=== PATIENT | male | born 1970 | race Caucasian/White ===

== ENCOUNTER 2016-05-28 08:42 | Emergency (ER) | payer BC ==
[2016-05-28] MEDS ORDERED: PROPARACAINE 0.5% OPHTH DROPS 15 ML BTL BOTH EYES STA (09:17)
--- NOTE | 2016-05-28 09:54 | ED ---
General Adult HPI - General Source: patient, RN notes reviewed Mode of arrival: ambulatory Limitations: no limitations <Farshad Bland - Last Filed: 05/28/16 10:33> <Poncho Negro - Last Filed: 05/28/16 21:48> - General Chief complaint: Skin/Abscess/Foreign Body Stated complaint: SHINGLES Time Seen by Provider: 05/28/16 09:16 - History of Present Illness Initial comments: Patient a 45-year-old male who presents emergency room today with chief complaint of a rash located to the top of his forehead. States this started 3 days ago. He states he had some mild right eye irritation when it started. He states his eye does not hurt today but the upper eyelid is a little sore. He does admit that he went to urgent care last night was advised coming here to the emergency room to rule out shingles is possibly to his eye. Patient states never had she was in the past. States there is some local tenderness. He states the rash is stable same over the last 3 days. States he has noticed a swollen gland on the right side. He denies any other complaints or associated symptoms. Patient denies any recent fever, chills, shortness of breath, chest pain, back pain, abdominal pain, nausea or vomiting, numbness or tingling, dysuria or hematuria, constipation or diarrhea, headaches or visual changes, or any other complaints. (Farshad Bland) - Related Data Previous Rx's Medication Instructions Recorded Sulfamethox-Tmp 800-160Mg [Bactrim 1 tab PO Q12HR #20 tab 05/28/16 DS 800-160 mg] valACYclovir HCL [Valacyclovir] 1,000 mg PO TID 7 Days 05/28/16 Allergies Allergy/AdvReac Type Severity Reaction Status Date / Time No Known Allergies Allergy Verified 05/28/16 10:42 Review of Systems ROS Other: All systems not noted in ROS Statement are negative. <Farshad Bland - Last Filed: 05/28/16 10:33> ROS Other: All systems not noted in ROS Statement are negative. <Poncho Negro - Last Filed: 05/28/16 21:48> ROS Statement: Those systems with pertinent positive or pertinent negative responses have been documented in the HPI. Past Medical History Past Medical History: Hypertension History of Any Multi-Drug Resistant Organisms: None Reported Past Surgical History: Appendectomy, Orthopedic Surgery Additional Past Surgical History / Comment(s): left shoulder, oral surgery Past Psychological History: No Psychological Hx Reported Smoking Status: Former smoker Past Alcohol Use History: Occasional Past Drug Use History: Marijuana <Farshad Bland - Last Filed: 05/28/16 10:33> General Exam Limitations: no limitations <BaldoFarshad - Last Filed: 05/28/16 10:33> <Poncho Negro - Last Filed: 05/28/16 21:48> - General Exam Comments Initial Comments: General: The patient is awake and alert, in no distress, and does not appear acutely ill. Eye: Pupils are equal, round and reactive to light, extra-ocular movements are intact. No nystagmus. There is normal conjunctiva bilaterally. No signs of icterus. Ears, nose, mouth and throat: There are moist mucous membranes and no oral lesions. Patient's right eye was stained with forcing shows no dendritic pattern. No uptake. No foreign bodies. Neck: The neck is supple, there is no tenderness or JVD. Cardiovascular: There is a regular rate and rhythm. No murmur, rub or gallop is appreciated. Respiratory: Lungs are clear to auscultation, respirations are non-labored, breath sounds are equal. No wheezes, stridor, rales, or rhonchi. Musculoskeletal: Normal ROM, no tenderness. Strength 5/5. Sensation intact. Pulses equal bilaterally 2+. Neurological: A&O x 3. CN II-XII intact, There are no obvious motor or sensory deficits. Coordination appears grossly intact. Speech is normal. Skin: Patient does have mild redness irritation to the midline of the forehead running vertically. Mild tenderness. Patient has some redness irritation to the superior lateral aspect of the right eyelid. Few white spots seen at the corner. Psychiatric: Cooperative, appropriate mood & affect, normal judgment. (Farshad Bland) Medical Decision Making <BlandFarshad - Last Filed: 05/28/16 10:33> <Poncho Negro - Last Filed: 05/28/16 21:48> - Medical Decision Making Case discussed and seen by attending physician Dr. Negro. Patient will be covered for possible shingles with antivirals and possible skin staph infection with an antibiotic. He is advised close follow-up with family doctor over the next 2 days. Advised return here to emergency room if any symptoms increase or worsen or for any other concerns. (Farshad Bland) I saw this patient in conjunction with the physician biology laboratory assistant. I performed independent history and physical exam. Agree with case management. (Poncho Negro) Disposition Time of Disposition: 10:33 <Farshad Bland - Last Filed: 05/28/16 10:33> <Poncho Negro - Last Filed: 05/28/16 21:48> Clinical Impression: Skin infection Disposition: HOME SELF-CARE Condition: Good Instructions: Shingles (ED) Additional Instructions: Please use medication as discussed. Please follow-up with family doctor in the next 2 days. Please return to emergency room if the symptoms increase or worsen or for any other concerns. Prescriptions: Sulfamethox-Tmp 800-160Mg [Bactrim DS 800-160 mg] 1 tab PO Q12HR #20 tab valACYclovir HCL [Valacyclovir] 1,000 mg PO TID 7 Days Referrals: None,Stated [Primary Care Provider] - 1-2 days Jennyfer Juan MD [REFERRING] - 1-2 days
[2016-05-28 10:51] VITALS: BP 162/91; PULSE 97; RESP 18; TEMP 99.1
== END 2016-05-28 10:57 | disposition home or self-care (01) ==
LOC: EC 08:42
DX: L08.9 Local infection of the skin and subcutaneous tissue, unspecified (principal); Z87.891 Personal history of nicotine dependence
CPT/HCPCS: 99283

== ENCOUNTER 2018-12-18 11:51 | Emergency (ER) | payer BC, OTHER ==
[2018-12-18 12:14] VITALS: TEMP 97.5
[2018-12-18] MEDS ORDERED: ONDANSETRON 4 MG/2 ML VIAL IVP STA (13:02)
[2018-12-18] MEDS ORDERED: SODIUM CHLORIDE 0.9% 1,000 ML IV STA (13:02)
--- NOTE | 2018-12-18 13:05 | ED ---
Nausea/Vomiting/Diarrhea HPI - General Chief complaint: Nausea/Vomiting/Diarrhea Stated complaint: N/V/D, neck pain Time Seen by Provider: 12/18/18 12:37 Source: patient Mode of arrival: wheelchair Limitations: no limitations - History of Present Illness Initial comments: Patient is a 48-year-old male presenting to the emergency Department with complaints of nausea and vomiting x 1 week. Patient states he did have a few days of diarrhea but that has since resolved. He denies any fever, chills, abdominal pain. Patient states he feels overall fatigue as well as having some neck pain. Patient admits to his neck pain being chronic in nature and is currently seeing a chiropractor for this. He denies any other trauma to his neck. Patient's mother is here with him. He has no other complaints at this time. - Related Data Previous Rx's Medication Instructions Recorded Sulfamethox-Tmp 800-160Mg [Bactrim 1 tab PO Q12HR #20 tab 05/28/16 DS 800-160 mg] valACYclovir HCL [Valacyclovir] 1,000 mg PO TID 7 Days tab 05/28/16 Ondansetron Odt [Zofran Odt] 8 mg PO Q8HR #10 tab 12/18/18 Allergies Allergy/AdvReac Type Severity Reaction Status Date / Time No Known Allergies Allergy Verified 12/18/18 12:12 Review of Systems ROS Statement: Those systems with pertinent positive or pertinent negative responses have been documented in the HPI. ROS Other: All systems not noted in ROS Statement are negative. Past Medical History Past Medical History: Hypertension History of Any Multi-Drug Resistant Organisms: None Reported Past Surgical History: Appendectomy, Orthopedic Surgery Additional Past Surgical History / Comment(s): left shoulder, oral surgery Past Psychological History: No Psychological Hx Reported Smoking Status: Former smoker Past Alcohol Use History: Occasional Past Drug Use History: None Reported, Marijuana General Exam - General Exam Comments Initial Comments: GENERAL: Well-appearing, well-nourished and in no acute distress. She appears fatigued, laying in the bed. HEAD: Atraumatic, normocephalic. EYES: Pupils equal round and reactive to light, extraocular movements intact, sclera anicteric, conjunctiva are normal. ENT: TMs normal, nares patent, oropharynx clear without exudates. Moist mucous membranes. NECK: Normal range of motion, supple without lymphadenopathy or JVD. Tenderness to palpation. LUNGS: Breath sounds clear to auscultation bilaterally and equal. No wheezes rales or rhonchi. HEART: Regular rate and rhythm without murmurs, rubs or gallops. ABDOMEN: Soft, nontender, normoactive bowel sounds. No guarding, no rebound. No masses appreciated. : Deferred EXTREMITIES: Normal range of motion, no pitting or edema. No clubbing or cyanosis. NEUROLOGICAL: Cranial nerves II through XII grossly intact. Normal speech, normal gait. PSYCH: Normal mood, normal affect. SKIN: Warm, Dry, normal turgor, no rashes or lesions noted. Limitations: no limitations Course Vital Signs 12/18/18 12/18/18 12:13 16:49 Temperature 97.5 F L Pulse Rate 66 81 Respiratory 18 16 Rate Blood Pressure 162/99 145/98 O2 Sat by Pulse 98 97 Oximetry Medical Decision Making - Medical Decision Making Patient is a 48-year-old male with complaints of nausea vomiting 1 week as well as feeling fatigued and neck pain. Patient's neck pain is chronic in nature. Patient seemed overly concerned about his back pain. Upon arrival, vital signs are stable, afebrile. On exam, he shouldn't has full cervical range of motion. No abdominal pain. CBC, CMP, UA are all within normal limits. Urine drug screen is normal. Cervical spine x-ray shows degenerative disc disease and spondylosis of C5 through C6. Patient was given some fluids, Zofran, and Toradol. Patient reports feeling improvement. Patient will follow up with his primary care as well as orthopedic that he knows. Patient is stable for discharge and he is in agreement with this plan. Return parameters were discussed with patient and he verbalized understanding. Case discussed with Dr. Cox. - Lab Data Result diagrams: 12/18/18 13:25 12/18/18 13:25 Lab Results 12/18/18 12/18/18 12/18/18 Range/Units 13:25 13:25 13:25 WBC 7.6 (3.8-10.6) k/uL RBC 5.90 (4.30-5.90) m/uL Hgb 16.6 (13.0-17.5) gm/dL Hct 48.9 (39.0-53.0) % MCV 82.8 (80.0-100.0) fL MCH 28.1 (25.0-35.0) pg MCHC 34.0 (31.0-37.0) g/dL RDW 16.4 H (11.5-15.5) % Plt Count 224 (150-450) k/uL Neutrophils % 80 % Lymphocytes % 13 % Monocytes % 5 % Eosinophils % 1 % Basophils % 1 % Neutrophils # 6.1 (1.3-7.7) k/uL Lymphocytes # 1.0 (1.0-4.8) k/uL Monocytes # 0.4 (0-1.0) k/uL Eosinophils # 0.1 (0-0.7) k/uL Basophils # 0.0 (0-0.2) k/uL Anisocytosis Slight Sodium 139 (137-145) mmol/L Potassium 4.7 (3.5-5.1) mmol/L Chloride 102 (98-107) mmol/L Carbon Dioxide 22 (22-30) mmol/L Anion Gap 15 mmol/L BUN 12 (9-20) mg/dL Creatinine 0.93 (0.66-1.25) mg/dL Est GFR (CKD-EPI)AfAm >90 (>60 ml/min/1.73 sqM) Est GFR (CKD-EPI)NonAf >90 (>60 ml/min/1.73 sqM) Glucose 94 (74-99) mg/dL Plasma Lactic Acid Bud 1.0 (0.7-2.0) mmol/L Calcium 9.7 (8.4-10.2) mg/dL Total Bilirubin 0.8 (0.2-1.3) mg/dL AST 15 L (17-59) U/L ALT 23 (21-72) U/L Alkaline Phosphatase 80 (38-126) U/L Total Protein 7.1 (6.3-8.2) g/dL Albumin 4.5 (3.5-5.0) g/dL Amylase 48 (30-110) U/L Lipase 74 (23-300) U/L Urine Color Urine Appearance (Clear) Urine pH (5.0-8.0) Ur Specific [place] (1.001-1.035) Urine Protein (Negative) Urine Glucose (UA) (Negative) Urine Ketones (Negative) Urine Blood (Negative) Urine Nitrite (Negative) Urine Bilirubin (Negative) Urine Urobilinogen (<2.0) mg/dL Ur Leukocyte Esterase (Negative) Urine Opiates Screen (NotDetected) Ur Oxycodone Screen (NotDetected) Urine Methadone Screen (NotDetected) Ur Propoxyphene Screen (NotDetected) Ur Barbiturates Screen (NotDetected) U Tricyclic Antidepress (NotDetected) Ur Phencyclidine Scrn (NotDetected) Ur Amphetamines Screen (NotDetected) U Methamphetamines Scrn (NotDetected) U Benzodiazepines Scrn (NotDetected) Urine Cocaine Screen (NotDetected) U Marijuana (THC) Screen (NotDetected) 12/18/18 Range/Units 14:30 WBC (3.8-10.6) k/uL RBC (4.30-5.90) m/uL Hgb (13.0-17.5) gm/dL Hct (39.0-53.0) % MCV (80.0-100.0) fL MCH (25.0-35.0) pg MCHC (31.0-37.0) g/dL RDW (11.5-15.5) % Plt Count (150-450) k/uL Neutrophils % % Lymphocytes % % Monocytes % % Eosinophils % % Basophils % % Neutrophils # (1.3-7.7) k/uL Lymphocytes # (1.0-4.8) k/uL Monocytes # (0-1.0) k/uL Eosinophils # (0-0.7) k/uL Basophils # (0-0.2) k/uL Anisocytosis Sodium (137-145) mmol/L Potassium (3.5-5.1) mmol/L Chloride (98-107) mmol/L Carbon Dioxide (22-30) mmol/L Anion Gap mmol/L BUN (9-20) mg/dL Creatinine (0.66-1.25) mg/dL Est GFR (CKD-EPI)AfAm (>60 ml/min/1.73 sqM) Est GFR (CKD-EPI)NonAf (>60 ml/min/1.73 sqM) Glucose (74-99) mg/dL Plasma Lactic Acid Bud (0.7-2.0) mmol/L Calcium (8.4-10.2) mg/dL Total Bilirubin (0.2-1.3) mg/dL AST (17-59) U/L ALT (21-72) U/L Alkaline Phosphatase (38-126) U/L Total Protein (6.3-8.2) g/dL Albumin (3.5-5.0) g/dL Amylase (30-110) U/L Lipase (23-300) U/L Urine Color Yellow Urine Appearance Clear (Clear) Urine pH 5.5 (5.0-8.0) Ur Specific [place] 1.017 (1.001-1.035) Urine Protein Negative (Negative) Urine Glucose (UA) Negative (Negative) Urine Ketones 4+ H (Negative) Urine Blood Negative (Negative) Urine Nitrite Negative (Negative) Urine Bilirubin Negative (Negative) Urine Urobilinogen <2.0 (<2.0) mg/dL Ur Leukocyte Esterase Negative (Negative) Urine Opiates Screen Not Detected (NotDetected) Ur Oxycodone Screen Not Detected (NotDetected) Urine Methadone Screen Not Detected (NotDetected) Ur Propoxyphene Screen Not Detected (NotDetected) Ur Barbiturates Screen Not Detected (NotDetected) U Tricyclic Antidepress Not Detected (NotDetected) Ur Phencyclidine Scrn Not Detected (NotDetected) Ur Amphetamines Screen Not Detected (NotDetected) U Methamphetamines Scrn Not Detected (NotDetected) U Benzodiazepines Scrn Not Detected (NotDetected) Urine Cocaine Screen Not Detected (NotDetected) U Marijuana (THC) Screen Not Detected (NotDetected) Disposition Clinical Impression: Dehydration, Nausea & vomiting, Neck pain Disposition: HOME SELF-CARE Condition: Stable Instructions (If sedation given, give patient instructions): Acute Nausea and Vomiting (ED), Neck Pain (ED) Additional Instructions: Please return to the Emergency Department if symptoms worsen or any other concerns. Follow-up with spine doctor as discussed. Also follow-up with PCP. Prescriptions: Ondansetron Odt [Zofran Odt] 8 mg PO Q8HR #10 tab Is patient prescribed a controlled substance at d/c from ED?: No Referrals: None,Stated [REFERRING] - 1-2 days
[2018-12-18 13:49] LABS: ALT 23 U/L (21-72); AST 15 U/L (17-59); African American GFR (CKD) >90 (>60 ml/min/1.73 sqM); Albumin 4.5 g/dL (3.5-5.0); Alkaline Phosphatase 80 U/L (38-126); Amylase 48 U/L (30-110); Anion Gap 15 mmol/L; Blood Urea Nitrogen 12 mg/dL (9-20); Calcium 9.7 mg/dL (8.4-10.2); Carbon Dioxide 22 mmol/L (22-30); Chloride 102 mmol/L (98-107); Glucose 94 mg/dL (74-99); Potassium 4.7 mmol/L (3.5-5.1); Sodium 139 mmol/L (137-145); Total Bilirubin 0.8 mg/dL (0.2-1.3); Total Protein 7.1 g/dL (6.3-8.2)
[2018-12-18 13:51] LABS: Anisocytosis Slight; Basophils % (A) 1 %; Eosinophils # (A) 0.1 k/uL (0-0.7); Eosinophils % (A) 1 %; HCT 48.9 % (39.0-53.0); HGB 16.6 gm/dL (13.0-17.5); Lymphocytes % (A) 13 %; MCH 28.1 pg (25.0-35.0); MCV 82.8 fL (80.0-100.0); Mean Platelet Volume 8.3; Monocytes # (A) 0.4 k/uL (0-1.0); Monocytes % (A) 5 %; Neutrophils # (A) 6.1 k/uL (1.3-7.7); Neutrophils % (A) 80 %; Platelet Count 224 k/uL (150-450); RDW 16.4 % (11.5-15.5); WBC 7.6 k/uL (3.8-10.6)
[2018-12-18] MEDS ORDERED: METOCLOPRAMIDE 5 MG/ML 2 ML VIAL IVP STA (14:49)
[2018-12-18] MEDS ORDERED: KETOROLAC 30 MG/ML 1 ML VIAL IVP STA (15:16)
--- NOTE | 2018-12-18 15:36 | XR ---
EXAMINATION TYPE: XR cervical spine comp DATE OF EXAM: 12/18/2018 COMPARISON: NONE HISTORY: Pain TECHNIQUE: Four views are submitted. FINDINGS: The odontoid is intact. There are no compression deformities. The prevertebral soft tissue structur es are within normal limits. Degenerative change C4-5 and C5-C7 with posterior spondylosis and anter ior spurring. Foraminal encroachment bilaterally C5-C6 greater on the right. IMPRESSION: 1. Degenerative disc disease and spondylosis C5-C6 with foraminal encroachment..
[2018-12-18 15:37] LABS: Appearance,Urine Clear (Clear); Bilirubin,Urine Negative (Negative); Blood,Urine Negative (Negative); Color,Urine Yellow; Glucose,Urine (UA) Negative (Negative); Ketones,Urine 4+ (Negative); Leukocyte Esterase,Urine Negative (Negative); Nitrite,Urine Negative (Negative); PH, Urine 5.5 (5.0-8.0); Protein,Urine Negative (Negative); Specific Gravity,Urine 1.017 (1.001-1.035); Urobilinogen,Urine <2.0 mg/dL (<2.0)
[2018-12-18 15:51] LABS: Amphetamine Screen,Urine Not Detected (NotDetected); Barbiturate Screen,Urine Not Detected (NotDetected); Benzodiazepines Screen,Urine Not Detected (NotDetected); Cocaine Screen,Urine Not Detected (NotDetected); Methadone Screen, Urine Not Detected (NotDetected); Opiate Screen,Urine Not Detected (NotDetected); Oxycodone Screen, Urine Not Detected (NotDetected); Phencyclidine Screen,Urine Not Detected (NotDetected); Tricyclic Antidepressant,Urine Not Detected (NotDetected); Urn Cannabinoid Scrn Not Detected (NotDetected)
[2018-12-18 16:56] VITALS: BP 145/98; PULSE 81; RESP 16
== END 2018-12-18 16:56 | disposition home or self-care (01) ==
LOC: EC 11:51
DX: E86.0 Dehydration (principal); R11.2 Nausea with vomiting, unspecified; M54.2 Cervicalgia; M50.322 Other cervical disc degeneration at C5-C6 level; M47.812 Spondylosis without myelopathy or radiculopathy, cervical region; Z87.891 Personal history of nicotine dependence
CPT/HCPCS: 36415; 80053; 82150; 83605; 83690; 85025; 81003; 80306; 72050; 99284; 96374; 96375 ×2; 96361; J2765; J2405; J1885

== ENCOUNTER 2019-01-31 14:43 | Emergency (ER) | payer OTHER ==
[2019-01-31 14:48] VITALS: TEMP 98.1
[2019-01-31 15:09] LABS: Glucose,Whole Blood 125 mg/dL (75-99)
[2019-01-31] MEDS ORDERED: SODIUM CHLORIDE 0.9% 1,000 ML IV STA ×2 (15:12)
--- NOTE | 2019-01-31 15:15 | ED ---
Neuro HPI - General Chief Complaint: Neuro Symptoms/Deficit Stated Complaint: Headache Time Seen by Provider: 01/31/19 14:51 Source: patient, RN notes reviewed, old records reviewed Mode of arrival: ambulatory Limitations: no limitations - History of Present Illness Is the patient presenting with stroke symptoms?: Yes -: unknown Initial Comments: This is a 48-year-old male the ER for evaluation regarding altered mental status. Patient is having significant receptive aphasia poor historian due to inability take a presented with mother. Patient's been suffering of headache from what he states is 45 days. Patient's been taking Motrin Tylenol, for his headache. Excedrin. Family denies drug or alcohol abuse. Patient is unable to give any accurate history currently. Mother has not the patient a few weeks. She does also. Patient has had a headache for about a month. Location: speech, altered (receptive aphasia) History of same: No Place: home Severity: severe Improves With: none Worsens With: none Context: other (Unknown onset of timing) Treatments Prior to Arrival: Aspirin, other (Excedrin) - Related Data Home Medications: Home Medications Medication Instructions Recorded Confirmed Aspirin/Acetaminophen/Caffeine 1 tab PO Q6H PRN 01/31/19 01/31/19 [Excedrin Migraine Caplet] Butalb/APAP/Caff 50-325-40Mg 1 tab PO Q4H PRN 01/31/19 01/31/19 [Fioricet 50-325-40] Ibuprofen [Motrin Ib] 800 mg PO Q6H PRN 01/31/19 01/31/19 Metoprolol Succinate [Toprol XL] 25 mg PO DAILY 01/31/19 01/31/19 Allergies/Adverse Reactions: Allergies Allergy/AdvReac Type Severity Reaction Status Date / Time No Known Allergies Allergy Verified 01/31/19 15:10 Review of Systems ROS Statement: Those systems with pertinent positive or pertinent negative responses have been documented in the HPI. ROS Other: All systems not noted in ROS Statement are negative. General Exam Limitations: no limitations General appearance: alert, in no apparent distress, anxious, in distress Head exam: Present: atraumatic, normocephalic, normal inspection Eye exam: Present: normal appearance, PERRL, EOMI. Absent: scleral icterus, conjunctival injection, periorbital swelling ENT exam: Present: normal exam, mucous membranes moist Neck exam: Present: normal inspection. Absent: tenderness, meningismus, lymphadenopathy Respiratory exam: Present: normal lung sounds bilaterally. Absent: respiratory distress, wheezes, rales, rhonchi, stridor Cardiovascular Exam: Present: regular rate, normal rhythm, normal heart sounds. Absent: systolic murmur, diastolic murmur, rubs, gallop, clicks GI/Abdominal exam: Present: soft, normal bowel sounds. Absent: distended, tenderness, guarding, rebound, rigid Extremities exam: Present: normal inspection, full ROM, normal capillary refill. Absent: tenderness, pedal edema, joint swelling, calf tenderness Back exam: Present: normal inspection Neurological exam: Present: alert, oriented X3, CN II-XII intact Psychiatric exam: Present: normal affect, normal mood Skin exam: Present: warm, dry, intact, normal color. Absent: rash Stroke MDM - Lab Data Result diagrams: 01/31/19 15:08 01/31/19 15:08 Lab Results 01/31/19 01/31/19 01/31/19 Range/Units 15:07 15:08 15:08 WBC (3.8-10.6) k/uL RBC (4.30-5.90) m/uL Hgb (13.0-17.5) gm/dL Hct (39.0-53.0) % MCV (80.0-100.0) fL MCH (25.0-35.0) pg MCHC (31.0-37.0) g/dL RDW (11.5-15.5) % Plt Count (150-450) k/uL Neutrophils % % Lymphocytes % % Monocytes % % Eosinophils % % Basophils % % Neutrophils # (1.3-7.7) k/uL Lymphocytes # (1.0-4.8) k/uL Monocytes # (0-1.0) k/uL Eosinophils # (0-0.7) k/uL Basophils # (0-0.2) k/uL PT (9.0-12.0) sec INR (<1.2) APTT (22.0-30.0) sec Sodium 142 (137-145) mmol/L Potassium 4.1 (3.5-5.1) mmol/L Chloride 107 (98-107) mmol/L Carbon Dioxide 23 (22-30) mmol/L Anion Gap 12 mmol/L BUN 13 (9-20) mg/dL Creatinine 0.87 (0.66-1.25) mg/dL Est GFR (CKD-EPI)AfAm >90 (>60 ml/min/1.73 sqM) Est GFR (CKD-EPI)NonAf >90 (>60 ml/min/1.73 sqM) Glucose 136 H (74-99) mg/dL POC Glucose (mg/dL) 125 H (75-99) mg/dL POC Glu Credit Consultant ID Ana Sharp Osmolality 297 (280-301) mosm/kg Calcium 9.9 (8.4-10.2) mg/dL Total Bilirubin 0.7 (0.2-1.3) mg/dL AST 19 (17-59) U/L ALT 9 L (21-72) U/L Alkaline Phosphatase 89 (38-126) U/L Ammonia <9 (<30) umol/L Total Creatine Kinase (55-170) U/L CK-MB (CK-2) (0.0-2.4) ng/mL CK-MB (CK-2) Rel Index Troponin I (0.000-0.034) ng/mL Total Protein 7.4 (6.3-8.2) g/dL Albumin 4.5 (3.5-5.0) g/dL Urine Color Urine Appearance (Clear) Urine pH (5.0-8.0) Ur Specific Milburn (1.001-1.035) Urine Protein (Negative) Urine Glucose (UA) (Negative) Urine Ketones (Negative) Urine Blood (Negative) Urine Nitrite (Negative) Urine Bilirubin (Negative) Urine Urobilinogen (<2.0) mg/dL Ur Leukocyte Esterase (Negative) Salicylates 2.7 mg/dL Urine Opiates Screen (NotDetected) Ur Oxycodone Screen (NotDetected) Urine Methadone Screen (NotDetected) Ur Propoxyphene Screen (NotDetected) Acetaminophen <10.0 ug/mL Ur Barbiturates Screen (NotDetected) U Tricyclic Antidepress (NotDetected) Ur Phencyclidine Scrn (NotDetected) Ur Amphetamines Screen (NotDetected) U Methamphetamines Scrn (NotDetected) U Benzodiazepines Scrn (NotDetected) Urine Cocaine Screen (NotDetected) U Marijuana (THC) Screen (NotDetected) Serum Alcohol <10 mg/dL 01/31/19 01/31/19 01/31/19 Range/Units 15:08 15:08 15:08 WBC 9.8 (3.8-10.6) k/uL RBC 5.95 H (4.30-5.90) m/uL Hgb 16.5 (13.0-17.5) gm/dL Hct 48.4 (39.0-53.0) % MCV 81.3 (80.0-100.0) fL MCH 27.7 (25.0-35.0) pg MCHC 34.1 (31.0-37.0) g/dL RDW 13.1 (11.5-15.5) % Plt Count 213 (150-450) k/uL Neutrophils % 80 % Lymphocytes % 13 % Monocytes % 4 % Eosinophils % 2 % Basophils % 1 % Neutrophils # 7.8 H (1.3-7.7) k/uL Lymphocytes # 1.3 (1.0-4.8) k/uL Monocytes # 0.4 (0-1.0) k/uL Eosinophils # 0.2 (0-0.7) k/uL Basophils # 0.1 (0-0.2) k/uL PT (9.0-12.0) sec INR (<1.2) APTT (22.0-30.0) sec Sodium (137-145) mmol/L Potassium (3.5-5.1) mmol/L Chloride (98-107) mmol/L Carbon Dioxide (22-30) mmol/L Anion Gap mmol/L BUN (9-20) mg/dL Creatinine (0.66-1.25) mg/dL Est GFR (CKD-EPI)AfAm (>60 ml/min/1.73 sqM) Est GFR (CKD-EPI)NonAf (>60 ml/min/1.73 sqM) Glucose (74-99) mg/dL POC Glucose (mg/dL) (75-99) mg/dL POC Glu Credit Consultant ID Osmolality ([phone]) mosm/kg Calcium (8.4-10.2) mg/dL Total Bilirubin (0.2-1.3) mg/dL AST (17-59) U/L ALT (21-72) U/L Alkaline Phosphatase (38-126) U/L Ammonia (<30) umol/L Total Creatine Kinase 84 (55-170) U/L CK-MB (CK-2) 0.9 (0.0-2.4) ng/mL CK-MB (CK-2) Rel Index 1.1 Troponin I <0.012 (0.000-0.034) ng/mL Total Protein (6.3-8.2) g/dL Albumin (3.5-5.0) g/dL Urine Color Light Yellow Urine Appearance Clear (Clear) Urine pH 5.5 (5.0-8.0) Ur Specific Milburn 1.008 (1.001-1.035) Urine Protein Negative (Negative) Urine Glucose (UA) Negative (Negative) Urine Ketones Negative (Negative) Urine Blood Negative (Negative) Urine Nitrite Negative (Negative) Urine Bilirubin Negative (Negative) Urine Urobilinogen <2.0 (<2.0) mg/dL Ur Leukocyte Esterase Negative (Negative) Salicylates mg/dL Urine Opiates Screen Not Detected (NotDetected) Ur Oxycodone Screen Not Detected (NotDetected) Urine Methadone Screen Not Detected (NotDetected) Ur Propoxyphene Screen Not Detected (NotDetected) Acetaminophen ug/mL Ur Barbiturates Screen Not Detected (NotDetected) U Tricyclic Antidepress Not Detected (NotDetected) Ur Phencyclidine Scrn Not Detected (NotDetected) Ur Amphetamines Screen Not Detected (NotDetected) U Methamphetamines Scrn Not Detected (NotDetected) U Benzodiazepines Scrn Not Detected (NotDetected) Urine Cocaine Screen Not Detected (NotDetected) U Marijuana (THC) Screen Not Detected (NotDetected) Serum Alcohol mg/dL 01/31/19 Range/Units 15:08 WBC (3.8-10.6) k/uL RBC (4.30-5.90) m/uL Hgb (13.0-17.5) gm/dL Hct (39.0-53.0) % MCV (80.0-100.0) fL MCH (25.0-35.0) pg MCHC (31.0-37.0) g/dL RDW (11.5-15.5) % Plt Count (150-450) k/uL Neutrophils % % Lymphocytes % % Monocytes % % Eosinophils % % Basophils % % Neutrophils # (1.3-7.7) k/uL Lymphocytes # (1.0-4.8) k/uL Monocytes # (0-1.0) k/uL Eosinophils # (0-0.7) k/uL Basophils # (0-0.2) k/uL PT 10.7 (9.0-12.0) sec INR 1.0 (<1.2) APTT 25.6 (22.0-30.0) sec Sodium (137-145) mmol/L Potassium (3.5-5.1) mmol/L Chloride (98-107) mmol/L Carbon Dioxide (22-30) mmol/L Anion Gap mmol/L BUN (9-20) mg/dL Creatinine (0.66-1.25) mg/dL Est GFR (CKD-EPI)AfAm (>60 ml/min/1.73 sqM) Est GFR (CKD-EPI)NonAf (>60 ml/min/1.73 sqM) Glucose (74-99) mg/dL POC Glucose (mg/dL) (75-99) mg/dL POC Glu Credit Consultant ID Osmolality ([phone]) mosm/kg Calcium (8.4-10.2) mg/dL Total Bilirubin (0.2-1.3) mg/dL AST (17-59) U/L ALT (21-72) U/L Alkaline Phosphatase (38-126) U/L Ammonia (<30) umol/L Total Creatine Kinase (55-170) U/L CK-MB (CK-2) (0.0-2.4) ng/mL CK-MB (CK-2) Rel Index Troponin I (0.000-0.034) ng/mL Total Protein (6.3-8.2) g/dL Albumin (3.5-5.0) g/dL Urine Color Urine Appearance (Clear) Urine pH (5.0-8.0) Ur Specific Milburn (1.001-1.035) Urine Protein (Negative) Urine Glucose (UA) (Negative) Urine Ketones (Negative) Urine Blood (Negative) Urine Nitrite (Negative) Urine Bilirubin (Negative) Urine Urobilinogen (<2.0) mg/dL Ur Leukocyte Esterase (Negative) Salicylates mg/dL Urine Opiates Screen (NotDetected) Ur Oxycodone Screen (NotDetected) Urine Methadone Screen (NotDetected) Ur Propoxyphene Screen (NotDetected) Acetaminophen ug/mL Ur Barbiturates Screen (NotDetected) U Tricyclic Antidepress (NotDetected) Ur Phencyclidine Scrn (NotDetected) Ur Amphetamines Screen (NotDetected) U Methamphetamines Scrn (NotDetected) U Benzodiazepines Scrn (NotDetected) Urine Cocaine Screen (NotDetected) U Marijuana (THC) Screen (NotDetected) Serum Alcohol mg/dL - NIH Stroke Scale 1a. Level of Consciousness: (0) alert 1b. LOC Questions: (1) answers 1 question correctly 1c. LOC Commands: (1) performs 1 task correctly 2. Best Gaze: (0) normal 3. Visual: (0) no visual loss 4. Facial Palsy: (0) normal symmetrical movement 5a. Motor Arm Left: (0) no drift 5b. Motor Arm Right: (0) no drift 6a. Motor Leg Left: (0) no drift 6b. Motor Leg Right: (0) no drift 7. Limb Ataxia: (0) absent 8. Sensory: (0) normal 9. Best Language: (1) mild/moderate aphasia 10. Dysarthria: (0) normal 11. Extinction/Inattention: (0) no abnormality - Thrombolytic Inclusion/Exclusion Thrombolytic Exclusion Criteria: Symptom Onset > 4.5 Hours - Medical Decision Making 48-year-old male the ER for evaluation. Patient presents today for evaluation of altered mental status. Patient found to be significantly receptive aphasia and altered mental status. Primary brain tumor found on CAT scan, patient will be transferred to [facility] for further evaluation management - Radiology Data Radiology results: report reviewed (CT brain CTA head and neck are both consistent with primary brain tumor, edema mild shift), image reviewed - EKG Data -: EKG Interpreted by Me (EKG shows sinus rhythm rate of 80, NE 172, QRS 80, QTC 431) Past Medical History Past Medical History: Hypertension Additional Past Medical History / Comment(s): Headaches History of Any Multi-Drug Resistant Organisms: None Reported Past Surgical History: Appendectomy, Orthopedic Surgery Additional Past Surgical History / Comment(s): left shoulder, oral surgery Past Psychological History: No Psychological Hx Reported Smoking Status: Former smoker Past Alcohol Use History: Occasional Past Drug Use History: None Reported, Marijuana Course Vital Signs 01/31/19 01/31/19 01/31/19 14:46 15:00 15:15 Temperature 98.1 F Pulse Rate 89 88 74 Respiratory 20 18 18 Rate Blood Pressure 194/102 170/109 169/101 O2 Sat by Pulse 98 98 98 Oximetry 01/31/19 01/31/19 01/31/19 15:30 15:45 16:00 Temperature Pulse Rate 75 80 80 Respiratory 18 18 18 Rate Blood Pressure 180/106 172/108 190/110 O2 Sat by Pulse 98 98 Oximetry 01/31/19 16:33 Temperature Pulse Rate 104 H Respiratory 18 Rate Blood Pressure 180/116 O2 Sat by Pulse 99 Oximetry - Reevaluation(s) Reevaluation #1: 01/31/19 15:19 Medical records reviewed Reevaluation #2: 01/31/19 15:19 Code stroke was paged on patient arrival. No known onset of symptoms making patient not TPA candidate currently - Consultations Consultation #1: [facility] Dr Crandall who is agreeable for transfer Critical Care Time Critical Care Time: Yes Total Critical Care Time: 31 Disposition Clinical Impression: Primary brain tumor, Receptive aphasia Disposition: OTHER INSTITUTION NOT DEFINED Condition: Critical Is patient prescribed a controlled substance at d/c from ED?: No Referrals: Brodie Hayward MD [Primary Care Provider] - 1-2 days - Out of Hospital Transfer - Req. Specs Out of Hospital Transfer - Requested Specifics: Other Emergency Center ([facility])
[2019-01-31 15:26] LABS: Appearance,Urine Clear (Clear); Basophils # (A) 0.1 k/uL (0-0.2); Basophils % (A) 1 %; Bilirubin,Urine Negative (Negative); Blood,Urine Negative (Negative); Color,Urine Light Yellow; Eosinophils # (A) 0.2 k/uL (0-0.7); Eosinophils % (A) 2 %; Glucose,Urine (UA) Negative (Negative); HCT 48.4 % (39.0-53.0); HGB 16.5 gm/dL (13.0-17.5); Ketones,Urine Negative (Negative); Leukocyte Esterase,Urine Negative (Negative); Lymphocytes # (A) 1.3 k/uL (1.0-4.8); Lymphocytes % (A) 13 %; MCH 27.7 pg (25.0-35.0); MCHC 34.1 g/dL (31.0-37.0); MCV 81.3 fL (80.0-100.0); Mean Platelet Volume 8.2; Monocytes # (A) 0.4 k/uL (0-1.0); Monocytes % (A) 4 %; Neutrophils # (A) 7.8 k/uL (1.3-7.7); Neutrophils % (A) 80 %; Nitrite,Urine Negative (Negative); PH, Urine 5.5 (5.0-8.0); Platelet Count 213 k/uL (150-450); Protein,Urine Negative (Negative); RBC 5.95 m/uL (4.30-5.90); RDW 13.1 % (11.5-15.5); Specific Gravity,Urine 1.008 (1.001-1.035); Urobilinogen,Urine <2.0 mg/dL (<2.0); WBC 9.8 k/uL (3.8-10.6)
[2019-01-31] MEDS ORDERED: DEXAMETHASONE SOD PHOSPHATE 10 MG/ML 1 ML VIAL IV STA (15:28)
[2019-01-31 15:36] LABS: ALT 9 U/L (21-72); AST 19 U/L (17-59); Acetaminophen <10.0 ug/mL; African American GFR (CKD) >90 (>60 ml/min/1.73 sqM); Albumin 4.5 g/dL (3.5-5.0); Alcohol <10 mg/dL; Alkaline Phosphatase 89 U/L (38-126); Anion Gap 12 mmol/L; Blood Urea Nitrogen 13 mg/dL (9-20); Calcium 9.9 mg/dL (8.4-10.2); Carbon Dioxide 23 mmol/L (22-30); Chloride 107 mmol/L (98-107); Glucose 136 mg/dL (74-99); Partial Thromboplastin Time 25.6 sec (22.0-30.0); Potassium 4.1 mmol/L (3.5-5.1); Prothrombin Time 10.7 sec (9.0-12.0); Salicylate 2.7 mg/dL; Sodium 142 mmol/L (137-145); Total Bilirubin 0.7 mg/dL (0.2-1.3); Total Protein 7.4 g/dL (6.3-8.2)
[2019-01-31 15:40] LABS: Amphetamine Screen,Urine Not Detected (NotDetected); Barbiturate Screen,Urine Not Detected (NotDetected); Benzodiazepines Screen,Urine Not Detected (NotDetected); Cocaine Screen,Urine Not Detected (NotDetected); Methadone Screen, Urine Not Detected (NotDetected); Opiate Screen,Urine Not Detected (NotDetected); Oxycodone Screen, Urine Not Detected (NotDetected); Phencyclidine Screen,Urine Not Detected (NotDetected); Tricyclic Antidepressant,Urine Not Detected (NotDetected); Urn Cannabinoid Scrn Not Detected (NotDetected)
[2019-01-31 15:43] LABS: Creatine Kinase 84 U/L (55-170)
--- NOTE | 2019-01-31 15:46 | CT ---
EXAMINATION TYPE: CT brain wo con for TPA DATE OF EXAM: 01/31/2019 COMPARISON: None HISTORY: Receptive aphasia CT DLP: mGycm Automated exposure control for dose reduction was used. FINDINGS: There is poorly marginated 5 cm area of mixed density in the left temporal lobe. There is central 10 mm hypodense area. This is consistent with a tumor mass. There is adjacent cerebral edema. There is m ild effacement of the left lateral ventricle. Third ventricle is shifted slightly to the right side. There is mild effacement of the third ventricle. There is no evidence of intracranial hemorrhage. Jose Raul varium is intact. IMPRESSION: LEFT SIDE CEREBRAL EDEMA AND MASS EFFECT MORE LIKELY RELATED TO TUMOR MASS IN LEFT TEMPORAL LOBE. I D O NOT SUSPECT AN ISCHEMIC INFARCT.
[2019-01-31 15:56] LABS: Creatine Kinase MB 0.9 ng/mL (0.0-2.4); Troponin I <0.012 ng/mL (0.000-0.034)
--- NOTE | 2019-01-31 15:59 | CT ---
EXAMINATION TYPE: CT angio head neck DATE OF EXAM: 01/31/2019 HISTORY: Perceptive aphasia COMPARISON: None CT DLP: 470 mGycm. Automated Exposure Control for Dose Reduction was Utilized. TECHNIQUE: CTA scan of the neck is performed with IV Contrast, patient injected with 65 mL of Isovue 370, axial images are obtained, coronal and sagittal reformatted images are reviewed. Three-D recons tructed images are created on an independent workstation and reviewed. FINDINGS: There is normal branching pattern of the great vessels on the aortic arch. There is bilateral arteria l flow in the subclavian arteries. There is arterial flow in the common internal and external carotid arteries bilaterally. There is arterial flow in both vertebral arteries. There are diminutive distal vertebral arteries. There is arterial flow in the anterior middle and posterior cerebral arteries bi laterally. There is a multicentric complex mass involving the left temporal lobe with multiple areas of increased and decreased attenuation. There is mass effect and effacement of the left lateral ventr icle and the third ventricle to some degree. There is shift of midline to the right side. I see no ev idence of intracranial hemodynamic stenosis. There is normal contrast opacification of the venous sin uses. There is no evidence of carotid or vertebral artery aneurysm or dissection. IMPRESSION: Multicentric large left temporal lobe mass consistent with primary brain tumor. No evidence of hemody namic arterial stenosis. Normal CT angiogram of the neck.
[2019-01-31] MEDS ORDERED: LABETALOL 5 MG/ML VIAL MDV IVP STA (16:14)
[2019-01-31 16:22] VITALS: RESP 18
[2019-01-31 16:47] VITALS: BP 153/112; PULSE 92
== END 2019-01-31 17:30 | disposition other institution (70) ==
LOC: EC 14:43
DX: D49.6 Neoplasm of unspecified behavior of brain (principal); R47.01 Aphasia; R41.82 Altered mental status, unspecified; I10 Essential (primary) hypertension; Z79.899 Other long term (current) drug therapy; Z87.891 Personal history of nicotine dependence
CPT/HCPCS: 36415; 93005; 83930; 80053; 82140; 82550; 82553; 84484; 85025; 85610; 85730; 81003; 80306; 83520; 80329; 80320; 70496; 70450; 70498; 96374; 96375; 96361; 99291; J1100; Q9967

== ENCOUNTER 2019-04-15 20:37 | Emergency (ER) | payer OTHER ==
[2019-04-15 21:01] VITALS: BP 144/103; PULSE 104; RESP 20; TEMP 98
[2019-04-15] MEDS ORDERED: predniSONE 20 MG TAB PO STA (22:01)
[2019-04-15] MEDS ORDERED: diphenhydrAMINE 50 MG CAP PO STA (22:01)
[2019-04-15] MEDS ORDERED: FAMOTIDINE 20 MG TAB PO STA (22:01)
--- NOTE | 2019-04-15 23:14 | ED ---
General Adult HPI - General Chief complaint: Skin/Abscess/Foreign Body Stated complaint: Rash Time Seen by Provider: 04/15/19 21:32 Source: patient, family, RN notes reviewed, old records reviewed Mode of arrival: ambulatory Limitations: altered mental status - History of Present Illness Initial comments: 48-year-old male patient past history significant for brain cancer currently on chemotherapy presents to ED for chief complaint of hives. Patient reports that he had his last chemo today. Patient reports that approximately 8 AM he began experiencing generalized urticaria. Reports that these resolved without intervention. Patient port. Approximate one hour prior to arrival in the ER the urticaria returned and they are itchy. Patient denies any symptoms of anaphylaxis. Denies difficulty breathing denies any sensation of throat closure. Denies any nausea or vomiting, denies any abdominal pain. Patient denies any fevers. Denies any cough congestion. Denies any other complaints. Systemic: Pt denies fatigue, fever/chills, rash. Pt denies weakness, night sweats, weight loss. Neuro: Pt denies headache, visual disturbances, syncope or pre-syncope. HEENT: Pt denies ocular discharge or irritation, otalgia, rhinorrhea, pharyngitis or notable lymphadenopathy. Cardiopulmonary: Pt denies chest pain, SOB, heart palpitations, dyspnea on e xertion. Abdominal/GI: Pt denies abdominal pain, n/v/d. : Pt denies dysuria, burning w/ urination, frequency/urgency. Denies new onset urinary or bowel incontinence. MSK: Pt denies myalgia, loss of strength or function in extremities. Neuro: Pt denies new onset weakness, paresthesias. - Related Data Home Medications Medication Instructions Recorded Confirmed Aspirin/Acetaminophen/Caffeine 1 tab PO Q6H PRN 01/31/19 01/31/19 [Excedrin Migraine Caplet] Butalb/APAP/Caff 50-325-40Mg 1 tab PO Q4H PRN 01/31/19 01/31/19 [Fioricet 50-325-40] Ibuprofen [Motrin Ib] 800 mg PO Q6H PRN 01/31/19 01/31/19 Metoprolol Succinate [Toprol XL] 25 mg PO DAILY 01/31/19 01/31/19 Previous Rx's Medication Instructions Recorded Famotidine [Pepcid] 20 mg PO Q24HR 3 Days #3 tablet 04/15/19 diphenhydrAMINE [Benadryl] 50 mg PO TID PRN 3 Days #6 capsule 04/15/19 predniSONE 20 mg PO BID 3 Days #6 tab 04/15/19 EPINEPHrine (Auto Inject) [Epipen] 0.3 mg IM ONCE PRN #2 pen 04/16/19 Allergies Allergy/AdvReac Type Severity Reaction Status Date / Time No Known Allergies Allergy Verified 04/15/19 21:00 Review of Systems ROS Statement: Those systems with pertinent positive or pertinent negative responses have been documented in the HPI. ROS Other: All systems not noted in ROS Statement are negative. Past Medical History Past Medical History: Hypertension Additional Past Medical History / Comment(s): Headaches History of Any Multi-Drug Resistant Organisms: None Reported Past Surgical History: Appendectomy, Orthopedic Surgery Additional Past Surgical History / Comment(s): left shoulder, oral surgery Past Psychological History: No Psychological Hx Reported Smoking Status: Former smoker Past Alcohol Use History: Occasional Past Drug Use History: None Reported, Marijuana General Exam - General Exam Comments Initial Comments: Constitutional: NAD, AOX3, Pt has pleasant affect. HEENT: NC/AT, trachea midline, neck supple, no lymphadenopathy. Posterior pharynx non erythematous, without exudates. External ears appear normal, without discharge. Mucous membranes moist. Eyes PERRLA, EOM intact. There is no scleral icterus. No pallor noted. Cardiopulmonary: RRR, no murmurs, rubs or gallops, no JVD noted. Lungs CTAB in anterior and posterior stephens. No peripheral edema. Abdominal exam: Abdomen soft and non-distended. Abdomen non-tender to palpation in all 4 quadrants. Bowel sounds active in LLQ. No hepatosplenomegaly. No ecchymosis Neuro: CN II-XII grossly intact. No nuchal rigidity. No raccon eyes, no gupta sign, no hemotympanum. No cervical spinal tenderness. MSK: No posterior calf tenderness bilaterally, homans sign negative bilaterally. Posterior tibialis and radial pulse +2 bilaterally. Sensation intact in upper and lower extremities. Full active ROM in upper and lower extremities, 5/5 stregnth. Derm: Generalized hives noted in upper and lower extremities. Limitations: altered mental status Course Vital Signs 04/15/19 20:57 Temperature 98.0 F Pulse Rate 104 H Respiratory 20 Rate Blood Pressure 144/103 O2 Sat by Pulse 96 Oximetry Medical Decision Making - Medical Decision Making 48-year-old male patient presents to ED for chief complaint of hives following chemotherapy. Patient vital signs are stable, afebrile. Physical exam didn't display urticaria upper and lower extremities as well as torso. Patient was administered prednisone and Pepcid and Benadryl with improvement of the hives. Patient discharged 3 days these medications as well as an EpiPen. He'll follow up with primary care provider will return to ER if condition worsens. Case discussed with Dr. Gomez. Disposition Clinical Impression: Urticaria Disposition: HOME SELF-CARE Condition: Stable Instructions (If sedation given, give patient instructions): Urticaria (ED) Additional Instructions: Follow-up with primary care provider tomorrow. Take medications as directed. Return immediately to ER if condition worsens in any way. Use epipen only for e mergency anaphylaxis. Prescriptions: diphenhydrAMINE [Benadryl] 50 mg PO TID PRN 3 Days #6 capsule PRN Reason: rash EPINEPHrine (Auto Inject) [Epipen] 0.3 mg IM ONCE PRN #2 pen PRN Reason: Anaphylaxis Famotidine [Pepcid] 20 mg PO Q24HR 3 Days #3 tablet predniSONE 20 mg PO BID 3 Days #6 tab Is patient prescribed a controlled substance at d/c from ED?: No Referrals: Jennyfer Juan MD [Primary Care Provider] - 1-2 days
== END 2019-04-15 23:22 | disposition home or self-care (01) ==
LOC: EC 20:37
DX: L50.9 Urticaria, unspecified (principal); R41.82 Altered mental status, unspecified; I10 Essential (primary) hypertension; Z87.891 Personal history of nicotine dependence; Z79.899 Other long term (current) drug therapy; Z85.841 Personal history of malignant neoplasm of brain; Z92.21 Personal history of antineoplastic chemotherapy
CPT/HCPCS: 99283; J7512

== ENCOUNTER 2019-05-30 15:56 | Emergency (ER) | payer OTHER ==
[2019-05-30 16:06] VITALS: RESP 18; TEMP 97.9
--- NOTE | 2019-05-30 16:29 | ED ---
General Adult HPI - General Chief complaint: Dizziness Stated complaint: Dizziness Time Seen by Provider: 05/30/19 16:06 Source: patient Mode of arrival: ambulatory Limitations: no limitations - History of Present Illness Initial comments: Dictation was produced using [employer] dictation software. please excuse any grammatical, word or spelling errors. Chief Complaint: 48-year-old male with past medical history of brain tumor presents today with generalized weakness and cough. History of Present Illness: 48-year-old male. He has past medical history of aggressive brain tumor. He presents today with his mother. Patient was brought from home for several days of cough and generalized weakness. Mother also noted that patient seems a little unsteady on his feet at times. She has been having a productive cough over the last several days. He's also been noted to have excessive somnolence according to mother. Patient complains of sore throat as well. Grandmother patient is at baseline. He at baseline has comprehension and word finding difficulties at times. January of last year patient had brain tumor resection done at [facility]. He has undergone several weeks of cancer treatment. He is less had cancer treatment approximately one month ago. He scheduled to start chemotherapy treatment on Saturday. She denies a unreliable historian at this time due to baseline mental condition. History is obtained from mother. The ROS documented in this emergency department record has been reviewed and confirmed by me. Those systems with pertinent positive or negative responses have been documented in the HPI. All other systems are other negative and/or noncontributory. PHYSICAL EXAM: General Impression: Alert and oriented x3, not in acute distress HEENT: Normocephalic atraumatic, extra-ocular movements intact, pupils equal and reactive to light bilaterally, mucous membranes moist, no pharyngeal erythema Cardiovascular: Heart regular rate and rhythm, S1&S2 audible, no murmurs, rubs or gallops Chest: Lungs clear to auscultation bilaterally, no rhonchi, no wheeze, no rales Abdomen: Bowel sounds present, abdomen soft, non-tender, non-distended, no organomegaly Musculoskeletal: Pulses present and equal in all extremities, no peripheral edema Motor: no focal deficits noted Neurological: CN II-XII grossly intact, no focal motor or sensory deficits noted, no extremity ataxia, no nystagmus Skin: Intact with no visualized rashes Psych: Normal affect and mood ED course: 48 yo Male with past medical history of aggressive brain cancer status post resection and one round of cancer treatment. Signs upon arrival are within acceptable limits. Patient is well-appearing at bedside. He has no focal findings on physical examination.Laboratory evaluation obtained. CBC unremarkable. Coag panel unremarkable. Metabolic panel is negative. Influenza test is negative. Chest x-ray shows possibly cardiomegaly however findings may be technical. Computed tomography scan of the brain was obtained. Discussed radiology findings with radiologist Dr. Wiseman who reports that there has been progression of abnormal brain findings. There are findings of vasogenic edema, mass effect on the left lateral ventricle and subfalcine herniation that is developmentally compared to CT imaging from January of last year. Discussed patient case with Dr. Austin who is on-call for patient's primary surgeon Dr. Sasha albarran. Dr. Austin he was able to review patient's chart however he left it up to us to decide if patient needed to be transferred or not. Multiple different disposition options were discussed with patient and patient's mother. Patient given 10 mg of IV Decadron.Patient case was discussed in detail with family. They request that patient be discharged and they want to follow-up with his neurosurgeon on outpatient basis. Discussed with family that given these significant CT findings of recommend transfer to [facility]. They understand that patient's neurologic status could acutely decline. They are aware of the risk of discharge as opposed to [facility]. Patient is given 10 more grams of IV Decadron. There urged to seek medical attention with any worsening symptoms. EKG interpretation: Ventricular rate 67, normal sinus rhythm, ND interval 176, QS 82, QTc 441. No ND prolongation, no QTC prolongation, no ST or T-wave changes noted. Overall, this EKG is unremarkable - Related Data Home Medications Medication Instructions Recorded Confirmed Aspirin/Acetaminophen/Caffeine 1 tab PO Q6H PRN 01/31/19 01/31/19 [Excedrin Migraine Caplet] Butalb/APAP/Caff 50-325-40Mg 1 tab PO Q4H PRN 01/31/19 01/31/19 [Fioricet 50-325-40] Ibuprofen [Motrin Ib] 800 mg PO Q6H PRN 01/31/19 01/31/19 Metoprolol Succinate [Toprol XL] 25 mg PO DAILY 01/31/19 01/31/19 Previous Rx's Medication Instructions Recorded Famotidine [Pepcid] 20 mg PO Q24HR 3 Days #3 tablet 04/15/19 diphenhydrAMINE [Benadryl] 50 mg PO TID PRN 3 Days #6 capsule 04/15/19 predniSONE 20 mg PO BID 3 Days #6 tab 04/15/19 EPINEPHrine (Auto Inject) [Epipen] 0.3 mg IM ONCE PRN #2 pen 04/16/19 Allergies Allergy/AdvReac Type Severity Reaction Status Date / Time No Known Allergies Allergy Verified 05/30/19 16:01 Review of Systems ROS Statement: Those systems with pertinent positive or pertinent negative responses have been documented in the HPI. ROS Other: All systems not noted in ROS Statement are negative. Past Medical History Past Medical History: Cancer, Hypertension Additional Past Medical History / Comment(s): Headaches, brain CA History of Any Multi-Drug Resistant Organisms: None Reported Past Surgical History: Appendectomy, Orthopedic Surgery Additional Past Surgical History / Comment(s): left shoulder, oral surgery, brain surgery (tumor removal) Past Psychological History: No Psychological Hx Reported Smoking Status: Former smoker Past Alcohol Use History: Occasional Past Drug Use History: None Reported, Marijuana General Exam Limitations: no limitations Course Vital Signs 05/30/19 16:02 Temperature 97.9 F Pulse Rate 76 Respiratory 18 Rate Blood Pressure 152/100 O2 Sat by Pulse 98 Oximetry Medical Decision Making - Lab Data Result diagrams: 05/30/19 17:00 05/30/19 17:00 Lab Results 05/30/19 05/30/19 05/30/19 Range/Units 17:00 17:00 17:00 WBC 9.2 (3.8-10.6) k/uL RBC 5.71 (4.30-5.90) m/uL Hgb 16.9 (13.0-17.5) gm/dL Hct 48.6 (39.0-53.0) % MCV 85.2 (80.0-100.0) fL MCH 29.6 (25.0-35.0) pg MCHC 34.7 (31.0-37.0) g/dL RDW 14.1 (11.5-15.5) % Plt Count 167 (150-450) k/uL Neutrophils % 85 % Lymphocytes % 5 % Monocytes % 7 % Eosinophils % 1 % Basophils % 1 % Neutrophils # 7.8 H (1.3-7.7) k/uL Lymphocytes # 0.5 L (1.0-4.8) k/uL Monocytes # 0.7 (0-1.0) k/uL Eosinophils # 0.1 (0-0.7) k/uL Basophils # 0.1 (0-0.2) k/uL PT (9.0-12.0) sec INR (<1.2) APTT (22.0-30.0) sec Sodium 135 L (137-145) mmol/L Potassium 4.4 (3.5-5.1) mmol/L Chloride 102 (98-107) mmol/L Carbon Dioxide 25 (22-30) mmol/L Anion Gap 8 mmol/L BUN 21 H (9-20) mg/dL Creatinine 0.73 (0.66-1.25) mg/dL Est GFR (CKD-EPI)AfAm >90 (>60 ml/min/1.73 sqM) Est GFR (CKD-EPI)NonAf >90 (>60 ml/min/1.73 sqM) Glucose 87 (74-99) mg/dL Plasma Lactic Acid Bud 1.4 (0.7-2.0) mmol/L Calcium 9.2 (8.4-10.2) mg/dL Magnesium 2.2 (1.6-2.3) mg/dL Total Bilirubin 1.4 H (0.2-1.3) mg/dL AST 22 (17-59) U/L ALT 22 (4-49) U/L Alkaline Phosphatase 54 (38-126) U/L Ammonia <9 (<30) umol/L Total Protein 6.4 (6.3-8.2) g/dL Albumin 3.8 (3.5-5.0) g/dL Influenza Type A RNA (Not Detectd) Influenza Type B (PCR) (Not Detectd) 05/30/19 05/30/19 Range/Units 17:00 17:00 WBC (3.8-10.6) k/uL RBC (4.30-5.90) m/uL Hgb (13.0-17.5) gm/dL Hct (39.0-53.0) % MCV (80.0-100.0) fL MCH (25.0-35.0) pg MCHC (31.0-37.0) g/dL RDW (11.5-15.5) % Plt Count (150-450) k/uL Neutrophils % % Lymphocytes % % Monocytes % % Eosinophils % % Basophils % % Neutrophils # (1.3-7.7) k/uL Lymphocytes # (1.0-4.8) k/uL Monocytes # (0-1.0) k/uL Eosinophils # (0-0.7) k/uL Basophils # (0-0.2) k/uL PT 10.3 (9.0-12.0) sec INR 1.0 (<1.2) APTT 22.2 (22.0-30.0) sec Sodium (137-145) mmol/L Potassium (3.5-5.1) mmol/L Chloride (98-107) mmol/L Carbon Dioxide (22-30) mmol/L Anion Gap mmol/L BUN (9-20) mg/dL Creatinine (0.66-1.25) mg/dL Est GFR (CKD-EPI)AfAm (>60 ml/min/1.73 sqM) Est GFR (CKD-EPI)NonAf (>60 ml/min/1.73 sqM) Glucose (74-99) mg/dL Plasma Lactic Acid Bud (0.7-2.0) mmol/L Calcium (8.4-10.2) mg/dL Magnesium (1.6-2.3) mg/dL Total Bilirubin (0.2-1.3) mg/dL AST (17-59) U/L ALT (4-49) U/L Alkaline Phosphatase (38-126) U/L Ammonia (<30) umol/L Total Protein (6.3-8.2) g/dL Albumin (3.5-5.0) g/dL Influenza Type A RNA Not Detected (Not Detectd) Influenza Type B (PCR) Not Detected (Not Detectd) Disposition Clinical Impression: Generalized weakness Disposition: HOME SELF-CARE Condition: Fair Instructions (If sedation given, give patient instructions): Dizziness (ED) Additional Instructions: Patient has vasogenic edema that appears to be worse on CT imaging today compared to previous images. This is a sign of worsening neurologic tissue damage. Your advised to follow-up as soon as possible with neurosurgeon. Please return to the emergency Department with any worsening symptoms especially worsening, dizziness, no numbness tingling or paresthesias, confusion Is patient prescribed a controlled substance at d/c from ED?: No Referrals: Jennyfer Juan MD [Primary Care Provider] - 1-2 days Time of Disposition: 19:33
[2019-05-30] MEDS ORDERED: ONDANSETRON 4 MG/2 ML VIAL IVP STA (16:41)
[2019-05-30 17:25] LABS: Prothrombin Time 10.3 sec (9.0-12.0)
[2019-05-30 17:26] LABS: Partial Thromboplastin Time 22.2 sec (22.0-30.0)
[2019-05-30 17:28] LABS: Ammonia <9 umol/L (<30); Lactic Acid, Venous 1.4 mmol/L (0.7-2.0)
[2019-05-30 17:29] LABS: ALT 22 U/L (4-49); AST 22 U/L (17-59); African American GFR (CKD) >90 (>60 ml/min/1.73 sqM); Albumin 3.8 g/dL (3.5-5.0); Alkaline Phosphatase 54 U/L (38-126); Anion Gap 8 mmol/L; Blood Urea Nitrogen 21 mg/dL (9-20); Calcium 9.2 mg/dL (8.4-10.2); Carbon Dioxide 25 mmol/L (22-30); Chloride 102 mmol/L (98-107); Glucose 87 mg/dL (74-99); Magnesium 2.2 mg/dL (1.6-2.3); Non-African American GFR(CKD) >90 (>60 ml/min/1.73 sqM); Potassium 4.4 mmol/L (3.5-5.1); Sodium 135 mmol/L (137-145); Total Bilirubin 1.4 mg/dL (0.2-1.3); Total Protein 6.4 g/dL (6.3-8.2)
[2019-05-30 17:36] LABS: Basophils # (A) 0.1 k/uL (0-0.2); Basophils % (A) 1 %; Eosinophils # (A) 0.1 k/uL (0-0.7); Eosinophils % (A) 1 %; HCT 48.6 % (39.0-53.0); HGB 16.9 gm/dL (13.0-17.5); Lymphocytes # (A) 0.5 k/uL (1.0-4.8); Lymphocytes % (A) 5 %; MCH 29.6 pg (25.0-35.0); MCHC 34.7 g/dL (31.0-37.0); MCV 85.2 fL (80.0-100.0); Mean Platelet Volume 6.7; Monocytes # (A) 0.7 k/uL (0-1.0); Monocytes % (A) 7 %; Neutrophils # (A) 7.8 k/uL (1.3-7.7); Neutrophils % (A) 85 %; Platelet Count 167 k/uL (150-450); RBC 5.71 m/uL (4.30-5.90); RDW 14.1 % (11.5-15.5); WBC 9.2 k/uL (3.8-10.6)
--- NOTE | 2019-05-30 18:32 | XR ---
EXAMINATION TYPE: XR chest 2V DATE OF EXAM: 05/30/2019 COMPARISON: NONE HISTORY: Cough TECHNIQUE: Frontal and lateral views of the chest are obtained. FINDINGS: There is no focal air space opacity, pleural effusion, or pneumothorax seen. The cardiac silhouette size is enlarged, patient is rotated. The osseous structures are intact. There are overl laurel cardiac leads. Lung lines are low. IMPRESSION: Suspect cardiomegaly, findings may be technical.
--- NOTE | 2019-05-30 18:45 | CT ---
EXAMINATION TYPE: CT brain wo con DATE OF EXAM: 05/30/2019 COMPARISON: Prior CT 01/31/2019 HISTORY: dizziness. brain tumor removed Jan 2019. CT DLP: 1098.4 mGycm Automated exposure control for dose reduction was used. Helical imaging through the brain using depar tmental protocol. FINDINGS: There is been interval progression in the white matter vasogenic edema in the left cerebrum, there is mass effect on the left lateral ventricle, subfalcine herniation has developed in the interval. Post op changes are noted to the left calvarium. IMPRESSION: THERE IS SOME PROGRESSION IN PATIENT'S ABNORMAL BRAIN FINDINGS DESCRIBED. [facility] AT THE TIME OF INTERPRETATION.
[2019-05-30] MEDS ORDERED: DEXAMETHASONE SOD PHOSPHATE 10 MG/ML 1 ML VIAL IV STA (19:16)
[2019-05-30 19:55] VITALS: BP 167/104; PULSE 71
== END 2019-05-30 19:55 | disposition home or self-care (01) ==
LOC: EC 15:56
DX: R53.1 Weakness (principal); R42 Dizziness and giddiness; R05 Cough; I10 Essential (primary) hypertension; Z79.899 Other long term (current) drug therapy; Z87.891 Personal history of nicotine dependence; Z85.841 Personal history of malignant neoplasm of brain
CPT/HCPCS: 36415; 93005; 80053; 82140; 83605; 83735; 85025; 85610; 85730; 87502; 71046; 70450; 99285; 96374; 96375; J1100; J2405